=== PATIENT | male | born 1955 | race Caucasian/White ===

== ENCOUNTER 2024-09-10 08:14 | Day surgery (SDC) | payer OTHER, SELFPAY ==
[2024-09-01 11:17] VITALS: BMI 31.2
[2024-09-01 11:31] LABS: % Basophils 0.6 % (0-2); % Eosinophils 2.6 % (0-6); % Immature Granulocytes 0.5 % (0-0.5); % Monocytes 9.7 % (1.7-9.3); % Neutrophils 52.6 % (42.2-75.2); Absolute Eosinophils 0.2 10^3/uL (0-0.7); Absolute Lymphocytes 2.1 10^3/uL (1.2-3.4); Absolute Monocytes 0.6 10^3/uL (0.1-0.6); Absolute Neutrophils 3.3 10^3/uL (1.4-6.5); Hematocrit 39.5 % (39.0-52.0); Hemoglobin 12.8 g/dL (13.0-18.0); Mean Corp Hgb Conc. 32.4 g/dL (33.0-37.0); Mean Corpuscular Hgb 31.1 pg (27.0-31.0); Mean Corpuscular Volume 96.1 fL (80.0-94.0); Mean Platelet Volume 10.6 fL (7.4-10.4); Nucleated Red Blood Cells % 0 % (-); Platelet Count 203 10^3/uL (130-400); Red Blood Cell Count 4.11 10^6/uL (4.70-6.10); Red Cell Dist. Width 14.6 % (11.5-14.5); White Blood Cell Count 6.2 10^3/uL (4.8-10.8)
[2024-09-01 11:38] LABS: ALT (SGPT) 17 U/L (0-50); AST (SGOT) 23 U/L (17-59); Albumin 4.3 g/dl (3.5-5.0); Alkaline Phosphatase 85 U/L (38-126); Blood Urea Nitrogen 23 mg/dl (9-20); Calcium 9.8 mg/dl (8.4-10.2); Carbon Dioxide 28 mmol/L (22-30); Chloride 108 mmol/L (98-107); Estimated Creatinine Clearance 118 ml/min; Glucose 110 mg/dl (70-99); Magnesium 1.8 mg/dl (1.6-2.3); Potassium 4.8 mmol/L (3.5-5.1); Sodium 142 mmol/L (135-145); Total Bilirubin 0.5 mg/dl (0.2-1.3); Total Protein 7.2 g/dl (6.3-8.2); eGFR > 60.00
[2024-09-01 11:57] LABS: INR 1.08; PT 14.3 Sec (11.4-14.6)
[2024-09-10] VITALS (13 sets, daily range): BP systolic 109–154; BP diastolic 61–74; BMI 29.2
--- NOTE | 2024-09-10 09:20 | PTCARENOTE ---
9 percocet oxycodone 7.5 -325 mg 9 pills sent to pharm to be ID, awaiting return from pharm
--- NOTE | 2024-09-10 10:38 | ITS.CL.ABL ---
[employer] - [facility]ation
Ablation
Procedure Report:
Primary Cold Working Inspector: Dr Ezequiel Tracy
Procedure Date: 09/10/2024
Patient History:
Patient is a pleasant 69-year-old male with a past medical history significant for persistent atrial fibrillation (symptomatic), alcohol use, sleep apnea, right bundle branch block, dyslipidemia, hypertension, back pain.
See H&P for complete details.
Indication:
Symptomatic persistent atrial fibrillation
Arrhythmia Specific History:
Prior Medical Therapies for Rate and Rhythm Control:
X Beta-chasity
[ ] Calcium channel-chasity
[ ] Amiodarone
[ ] Dronederone
[ ] Sotalol
[ ] Flecainide
[ ] Dofetilide
X Options limited by bradycardia
[ ] Options limited by comorbid renal disease
Prior Procedural Therapies for AF/AFL:
X Cardioversion
[ ] Pulmonary Vein Isolation
[ ] Posterior Wall Isolation
[ ] Additional lines (Specify)
[ ] Surgical Guajardo-MAZE or PVI (Specify)
Procedure Performed:
X AF ablation procedure (21822) -- includes LA/CS pacing, trans-septal, 3D mapping, + ICE
[ ] +IV drug (48522)
[ ] +Other Arrhythmia (27787)
X +Other AF Line/ablation (36394 x2) -- floor line, roof line, and posterior wall
Risks and expected recovery has been explained in detail. Alternative options have been explored, and in a shared-decision making fashion we have decided that this was the most appropriate procedure.
Method
NPO status confirmed. Grounding pad applied. Defibrillator pads applied. Continuous surface ECG, pulse oximetry, and blood pressure were monitored. Procedure was performed under general anesthesia, with anesthesia services.
Both groins were clipped, prepped with Chloraprep, and draped in sterile fashion. Time out was called. Local anesthesia administered with bupivacaine. The right femoral vein was accessed for catheter placement, using ultrasound guidance (images
saved to record), micro-puncture needle/wire, and modified seldinger technique. 3 sheaths were placed. The following catheters were used:
[ ] Tacticath SE (D/F Curve) ablation catheter
X Viewflex 9Fr ICE catheter
X Inquiry decapolar 6Fr diagnostic catheter
[ ] CRD Hex 6Fr
[ ] Arctic Front Advance Cryoballoon ([ ]28mm[ ]23mm)
[ ] Achieve Advance mapping catheter ([ ]15mm[ ]20mm)
X FlexCath Contour 10 Fr with PulseSelect PFA Catheter
X Advisor HD Grid Mapping Catheter, SE
[ ] Acuson AcuNav 8 Fr ICE catheter
[ ]Other: [ ]
Intracardiac ultrasound (ICE) was carefully advanced into the right atrium to guide sheath placement over a J-wire, catheter placement, guide trans-septal puncture, identify potential complications, identify anatomic structures and ensure proper
contact between ablation catheter and tissue.
Heparin was given prior to trans-septal puncture. Heparin was given to achieve and maintain a target ACT of 300-400 seconds throughout the procedure.
Trans-septal access was performed under ICE guidance. The trans-septal puncture was performed with a SafeSept wire through a Brockenbrough needle assembly through the steerable sheath. The wire was visualized as it entered the LSPV and system
advanced under ICE guidance and fluoroscopy into the LA. The Brockenbrough needle assembly, SafeSept wire and sheath dilator were removed under negative pressure. LA pressure was measured and recorded.
ICE and 3D mapping was performed to identify relevant cardiac structures. A careful 3D map was created to assess for regions of low-voltage and abnormal electrogram signals using HD grid mapping catheter and PulseSelect catheter. Additional mapping
was performed as outlined below.
Prior to ablation, glycopyrrolate was provided. PulseSelect catheter was advanced over J-wire to the ostium of each vein. Pulmonary vein isolation was performed with ostial and antral lesions in a circumferential manner. Contact was visualized via
EAM, ICE, fluoroscopy, and EGM signals. Based on patient anatomy and clinical history, a floor line, roof line and posterior wall isolation were performed by anchoring the J-wire within the pulmonary vein and placing the PulseSelect catheter in
contact with the floor, roof, and posterior wall as visualized by aforementioned methods. During ablation, patient went into atrial fibrillation while ablating at the right superior pulmonary vein. Following completion of ablation lesions, sinus
rhythm was restored with a 200J synchronized DCCV and a post-ablation voltage/activation map was performed in sinus rhythm. Entrance and exit block were confirmed for each vein and the posterior wall.
Catheter and sheath were removed from the left atrium and post-ablation intracardiac echo evaluation was consistent with pre-ablation with no changes and no pericardial effusion and there is no left atrial thrombus or left ventricle thrombus seen.
Electrophysiology study was performed. Hemostasis was obtained with Vascade for each sheath and with manual pressure. Protamine was used for reversal.
Estimated Blood Loss
5 mL
Complications
None
Fluoroscopy: 8.3 minutes; 122.01 mGy; DAP 19.4
LA Pressure: Pre 1 mmHg, post 3 mmHg
Baseline Intervals:
Rhythm: SB
AZ: 220 ms
QRS: 141 ms
QT: 473 ms
QTc: 417 ms
A-A: 1287 ms
R-R: 1287 ms
Post-Procedure Intervals:
AZ: 195 ms
QRS: 135 ms
QT: 464 ms
QTc: 407 ms
A-A: 1300 ms
R-R: 1300 ms
AVWB: 770 ms
AVNERP: 800/750 ms
Recommendations
- Bedrest with straight-leg precautions as ordered
- Anticipate same day discharge if patient meeting clinical metrics
- Resume home medications as indicated
- Ok to resume anticoagulation tonight if patient and groin sites stable
- PPI daily for 30 days
- Plan for follow-up in office as scheduled
- Decrease metoprolol to 25 mg daily
Tristen Montano, DO, FACC, RS
Clinical Cardiac Final Rail Cutter
cc: Dr Ezequiel Tracy; Dr Jonah De Jesus
[2024-09-10 11:28] LABS: ACT-LR - POC 242 Seconds (116-155)
[2024-09-10 11:41] LABS: ACT-LR - POC 256 Seconds (116-155)
[2024-09-10 11:57] LABS: ACT-LR - POC 281 Seconds (116-155)
[2024-09-10 12:14] LABS: ACT-LR - POC 363 Seconds (116-155)
[2024-09-10 12:41] LABS: ACT-LR - POC 360 Seconds (116-155)
[2024-09-10 12:55] LABS: ACT-LR - POC 202 Seconds (116-155)
[2024-09-10] MEDS: NON-FORMULARY ITEM 2 TABLET PO (14:36)
[2024-09-10] MEDS: ANESTHETIC LOZENGE 1 LOZENGE PO (15:07)
--- NOTE | 2024-09-10 15:34 | W.PN.UPDATE ---
Update Note
Progress Note Update
Pt seen post PFA. RIght groin site without ht/bleeding, oob ambulating, urinating without difficulty. Post EKG SB 50s w/1st deg AVB/RBBB as before, no acute changes. Resume eliuqis tonight at usual time. Bradycardia noted and will decrease
metoprolol xl to 25mg daily. Followup w/Dr Tracy as scheduled. Home today if groin site/tele remain stable.
--- NOTE | 2024-09-10 15:47 | PTCARENOTE ---
Pt Karolina sent home with patient & pills
== END 2024-09-10 15:49 | disposition home or self-care (01) ==
LOC: CATH 08:14
PROVIDERS: ATTENDING PHYSICIAN Internal Medicine Cardiovascular Disease; FAMILY PHYSICIAN Family Medicine Sports Medicine; OTHER PHYSICIAN Internal Medicine Interventional Cardiology
DX: I48.19 Other persistent atrial fibrillation (principal); I10 Essential (primary) hypertension; E78.1 Pure hyperglyceridemia; G47.33 Obstructive sleep apnea (adult) (pediatric); G89.29 Other chronic pain; I45.10 Unspecified right bundle-branch block; I87.2 Venous insufficiency (chronic) (peripheral); M10.9 Gout, unspecified; M19.90 Unspecified osteoarthritis, unspecified site; N40.0 Benign prostatic hyperplasia without lower urinary tract symptoms; Z79.01 Long term (current) use of anticoagulants; Z79.899 Other long term (current) drug therapy; Z79.891 Long term (current) use of opiate analgesic; Z87.891 Personal history of nicotine dependence
CPT/HCPCS: C1732; C1894; C1730; C1733; C1769; C1766; 36415; 75572; 80053; 83735; 85025; 85347; 85610; 86850; 86900; 86901; 93005; 93656; 93657; C1760; Q9967